=== PATIENT | male | born 1940 | race Caucasian/White ===

== ENCOUNTER → 2025-02-23 13:27 | Outpatient (REF) | payer MEDICARE, OTHER, SELFPAY | LOC: RCS 13:27 | PROVIDERS: ATTENDING PHYSICIAN Internal Medicine Cardiovascular Disease; FAMILY PHYSICIAN Family Medicine | DX: I48.19 Other persistent atrial fibrillation (principal); R06.09 Other forms of dyspnea | CPT/HCPCS: 93306 ==

== ENCOUNTER → 2025-03-02 11:25 | Outpatient (REF) | payer MEDICARE, OTHER, SELFPAY | LOC: RCS 11:25 | PROVIDERS: ATTENDING PHYSICIAN Internal Medicine Cardiovascular Disease; FAMILY PHYSICIAN Family Medicine | DX: I48.19 Other persistent atrial fibrillation (principal); R06.09 Other forms of dyspnea; R94.31 Abnormal electrocardiogram [ECG] [EKG] | CPT/HCPCS: 78452; 93017; A9500; J2785 ==

== ENCOUNTER → 2025-03-10 10:28 | Outpatient (REF) | payer MEDICARE, OTHER, SELFPAY | LOC: RCS 10:28 | PROVIDERS: ATTENDING PHYSICIAN Internal Medicine Cardiovascular Disease; FAMILY PHYSICIAN Family Medicine | DX: I50.9 Heart failure, unspecified (principal); R06.09 Other forms of dyspnea; R94.31 Abnormal electrocardiogram [ECG] [EKG]; I48.19 Other persistent atrial fibrillation | CPT/HCPCS: 78803; A9538 ==

== ENCOUNTER → 2025-03-15 12:36 | Outpatient (REF) | payer MEDICARE, OTHER, SELFPAY | LOC: RAD 12:36 | PROVIDERS: ATTENDING PHYSICIAN Internal Medicine Cardiovascular Disease; FAMILY PHYSICIAN Family Medicine | DX: R06.09 Other forms of dyspnea (principal) | CPT/HCPCS: 71046 ==

== ENCOUNTER → 2025-04-05 11:06 | Outpatient (REF) | payer MEDICARE, OTHER, SELFPAY | LOC: RAD 11:06 | PROVIDERS: ATTENDING PHYSICIAN Internal Medicine Critical Care Medicine; FAMILY PHYSICIAN Family Medicine | DX: R93.89 Abnormal findings on diagnostic imaging of other specified body structures (principal) | CPT/HCPCS: 71046 ==

== ENCOUNTER → 2025-04-11 07:10 | Outpatient (REF) | payer MEDICARE, OTHER, SELFPAY | LOC: DHSLP 07:10 | PROVIDERS: ATTENDING PHYSICIAN Internal Medicine Critical Care Medicine; FAMILY PHYSICIAN Family Medicine | DX: G47.33 Obstructive sleep apnea (adult) (pediatric) (principal) | CPT/HCPCS: 95800 ==

== ENCOUNTER → 2025-04-15 12:53 | Outpatient (REF) | payer MEDICARE, OTHER, SELFPAY | LOC: HWRAD 12:53 | PROVIDERS: ATTENDING PHYSICIAN Internal Medicine Critical Care Medicine; FAMILY PHYSICIAN Family Medicine | DX: R06.02 Shortness of breath (principal); J84.9 Interstitial pulmonary disease, unspecified | CPT/HCPCS: 71250 ==

== ENCOUNTER 2025-05-24 06:49 | Day surgery (SDC) | payer MEDICARE, OTHER, SELFPAY | END 2025-05-24 09:30 | disposition home or self-care (01) | LOC: SDS 06:49 | PROVIDERS: ATTENDING PHYSICIAN Internal Medicine Cardiovascular Disease; FAMILY PHYSICIAN Family Medicine; OTHER PHYSICIAN Internal Medicine Cardiovascular Disease; REFERRING PHYSICIAN Internal Medicine Cardiovascular Disease | DX: I48.91 Unspecified atrial fibrillation (principal); I08.0 Rheumatic disorders of both mitral and aortic valves | CPT/HCPCS: 93312; 93320; 93325 ==

== ENCOUNTER 2025-06-29 10:43 | Inpatient (IN) | payer MEDICARE, OTHER, SELFPAY ==
[2025-06-29] VITALS (26 sets, daily range): BP systolic 73–124; BP diastolic 44–85; BMI 32.8
--- NOTE | 2025-06-29 10:19 | W.PN.UPDATE ---
Update Note
Progress Note Update
84-year-old male with history of persistent atrial fibrillation, concern for left atrial thrombus April 2025, ATTR amyloidosis, HFrEF, COPD, history of DVT who presented for AIRAM cardioversion today. Patient underwent a AIRAM with no evidence of
left atrial appendage thrombus. Patient had successful AIRAM cardioversion and is now in sinus rhythm. Plan for hospitalization for initiation of antiarrhythmic therapy/Tikosyn. This was previously outlined by patient's primary septic tank servicer
Steven.
.
Note patient had been been maintained on Eliquis. He underwent a AIRAM in April which raise concern for thrombus. Patient was transition from Eliquis to Pradaxa which he has been taking consistently. Patient then underwent AIRAM cardioversion
today. Prior to AIRAM cardioversion he had just reported that he had some generalized fatigue but no changes since his last office visit and no complaints of increased shortness of breath since the last visit.
.
Postprocedure patient is currently comfortable and in no distress. Patient tolerated procedure well.
Transthoracic echo 02/23/2025 ejection fraction 35 to 40% with global hypokinesis mildly enlarged RV low normal RV systolic function aortic sclerosis without stenosis mild to moderate tricuspid regurgitation PA pressure 40-45
--- NOTE | 2025-06-29 10:48 | W.PN.CD ---
Addendum entered and electronically signed by YUE Zapata 06/29/25 11:13:
Full H+P uploaded to chart
Original Note:
Today's Communication / Plan
-
-plan to start dofetilide. Monitor telemetry and EKG's per protocol. Await labs to determine dosing of medication.
-continue dabigatran
Impression / Plan
-
84 y/o male with HFrEF, old CT by nuclear medicine study, COPD/ILD,pulm nodules, Hx DVT, ATTR amyloidosis, and persistent AFIB (diagnosis January 2025). AIRAM 05/24/25 showed GAYATRI thrombus and Eliquis was adjusted to Pradaxa. Plan per Dr. Harris is for
repeat AIRAM after 4 weeks and if no thrombus plan for CV and dofetilide initiation. AIRAM done today showed no thrombus, so patient cardioverted to SR by Dr. Navarrete. We will admit for dofetilide initiation.
Persistent AFIB:
-now s/p AIRAM and CV 06/29/25
-initiate dofetilide- awaiting blood work to see what dosing will be; this medication requires intensive monitoring
-continue Pradaxa
ATTR amyloidosis:
-Patient follows with Dr. Garcia and is on tafamidis- continue
HFrEF: chronic
-Transthoracic echo 02/23/2025 ejection fraction 35 to 40% with global hypokinesis mildly enlarged RV low normal RV systolic function aortic sclerosis without stenosis mild to moderate tricuspid regurgitation PA pressure 40-45.
-on metoprolol, spironolactone, and valsartan
-volume stable- continue Lasix
GAYATRI thrombus:
-resolved by AIRAM
-continue Pradaxa
Physical Exam
Vital Signs/Labs
06/28/25 06/29/25 06/30/25
06:59 06:59 06:59
Actual Weight 95.028 kg
Physical Exam
Constitutional: No acute distress
EENT: Anicteric
Cardiovascular: Rhythm & rate is regular
Respiratory: Respiratory effort normal and Lungs clear to auscul.
Neuro/Psych: AO x 3
Data Reviewed
-
Date of Service: June 29, 2025
EKG: Tracing Personally Visualized and interpreted (SR with PVC's, T abnormality)
Labs: Labs Ordered by me
Old Records: Reviewed (and uploaded in chart)
--- NOTE | 2025-06-29 11:02 | PTCARENOTE ---
received pt from recovery area. Aox3, no complaints of pain or discomfort. Assist x1 OOB with cane. Oriented to room and unit. Call navarro within reach.
--- NOTE | 2025-06-29 12:24 | PTCARENOTE ---
Addendum entered by Taylor Resendiz RN 06/29/25 12:38:
received orders for IVF, see MAR for details.
Original Note:
Pt BP 78/46 manually, Roxanne Montaño notified. Pt is asymptomatic at this time. Will continue to monitor.
[2025-06-29] MEDS: NSS 250 IV ×2 (13:19→16:16)
[2025-06-29 13:23] LABS: Hematocrit 36.5 % (39.0-52.0); Hemoglobin 12.1 g/dL (13.0-18.0); Mean Corp Hgb Conc. 33.2 g/dL (33.0-37.0); Mean Corpuscular Volume 96.6 fL (80.0-94.0); Platelet Count 178 10^3/uL (130-400); Red Cell Dist. Width 15.0 % (11.5-14.5)
--- NOTE | 2025-06-29 13:28 | CM ---
Chart reviewed. Patient is independent of ADLS, lives with his in a 2 S[address], 1 VICKIE, 0 DME. Plan is for the patient to return home. CM to follow
[2025-06-29 13:55] LABS: Blood Urea Nitrogen 28 mg/dl (9-20); Calcium 8.9 mg/dl (8.4-10.2); Carbon Dioxide 31 mmol/L (22-30); Chloride 103 mmol/L (98-107); Estimated Creatinine Clearance 48 ml/min; Glucose 102 mg/dl (70-99); Potassium 5.4 mmol/L (3.5-5.1); Sodium 137 mmol/L (135-145); eGFR 54.85
--- NOTE | 2025-06-29 14:37 | W.CARD.TIKOS ---
Initiate Tikosyn
-
I verify that the patient has not taken any verapamil (Isoptin/Calan), ketoconazole (Nizoral), cimetidine (Tagamet), trimethoprim (Trimpex), trimethoprim/sulfamethoxazole (Bactrim), megesterol (Megace), prochlorperazine (Compazine),
hydrochlorothiazide (HCTZ), dolutegravir (Tivicay) or any Class I or Class III anti-arrhythmic within the last three days
AND
I verify that the patient has not taken amiodarone within the last THREE months, or that the patient's amiodarone plasma concentration is <0.3 mcg/mL.
Creatinine 1.3 mg/dL (0.7-1.3) 06/29/25 13:11
Estimated Creat Clear 48 ml/min 06/29/25 13:11
Does patient have a Ventricular Conduction Abnormality: No
I have assessed the baseline QTc interval (using QT for heart rate less than 60 bpm) and deemed the patient is appropriate for Dofetilide therapy. I understand that Tikosyn is contraindicated if the QTc is >440msec (500msec in patients with
ventricular conduction abnormalities).
Baseline QTc (in msec): 438
Ordering Physician: Warren Navarrete
--- NOTE | 2025-06-29 16:56 | W.PN.UPDATE ---
Addendum entered and electronically signed by YUE Zapata 06/29/25 17:35:
Dr. Cornell and I reassessed patient who seems to be doing fine. MAP is 66. He feels weak overall, but otherwise fine. Eating dinner. Plan as below.
Addendum entered and electronically signed by YUE aZpata 06/29/25 17:32:
Also holding metoprolol until reassessment in AM. Resume when safe to do so.
Original Note:
Update Note
Progress Note Update
Late entry:
Post-procedure, nursing let me know that patient's BP was low 74/48. I assessed him and he felt and looked well. Last OP BP was SBP in 90's. Discussed with Dr. Navarrete (who did procedure today) and I ordered small normal saline bolus x 2. Reviewed
with nursing. Also asked nursing to hold today's Lasix.
Otherwise, patient with mild hyperkalemia on today's labs and I will hold Valsartan and Spironolactone until we see AM labs and BP's. Plan to resume when safe to do so.
SBP still in 80's. Discussed with Dr. Navarrete and nursing and will give a dose of midodrine.
--- NOTE | 2025-06-29 17:06 | PTCARENOTE ---
BP 83/58 after receiving 2nd IVF bolus. Roxanne Montaño made aware. Per Roxanne, keep pt on bedrest as much as possible. Will continue to monitor.
[2025-06-29] MEDS: TIKOSYN 250 MCG PO (19:29)
[2025-06-29] MEDS: LYRICA 150 MG PO (19:29)
[2025-06-29] MEDS: PRADAXA 150 MG PO (19:30)
--- NOTE | 2025-06-29 23:34 | PTCARENOTE ---
Received pt @ change of shift. AAOx3, BPs 80s/50s-- Dr. Cornell aware. Holding BP meds and lasix. Other VSS. Denies dizziness, lightheadedness @ this time. Just feels 'tired and weak.' Did not bring CPAP from home-- requested 2L NC @ HS. Discussed
starting Tikosyn loading-- medication with EKGs two hours later. Pt verbalizes understanding. Discussed rest of plan of care. Pt verbalizes understanding. Call navarro within reach.
[2025-06-30] VITALS (11 sets, daily range): BP systolic 80–142; BP diastolic 43–126; BMI 33.4
[2025-06-30 03:06] LABS: Hematocrit 33.0 % (39.0-52.0); Hemoglobin 11.0 g/dL (13.0-18.0); Mean Corp Hgb Conc. 33.3 g/dL (33.0-37.0); Mean Corpuscular Volume 92.2 fL (80.0-94.0); Platelet Count 163 10^3/uL (130-400); Red Cell Dist. Width 15.0 % (11.5-14.5)
--- NOTE | 2025-06-30 03:10 | PTCARENOTE ---
Informed Dr. Youssef of pt's low BP and HR (81/50 and 50s). Because pt is asymptomatic-- nothing to do @ this time.
[2025-06-30 03:30] LABS: Blood Urea Nitrogen 36 mg/dl (9-20); Calcium 8.6 mg/dl (8.4-10.2); Carbon Dioxide 26 mmol/L (22-30); Chloride 104 mmol/L (98-107); Estimated Creatinine Clearance 39 ml/min; Glucose 92 mg/dl (70-99); Potassium 5.0 mmol/L (3.5-5.1); Sodium 136 mmol/L (135-145); eGFR 42.75
[2025-06-30] MEDS: PRADAXA 150 MG PO ×2 (07:19→19:32)
[2025-06-30] MEDS: LYRICA 150 MG PO ×2 (07:19→19:32)
[2025-06-30] MEDS: NON-FORMULARY ITEM 61 MG PO (07:20)
--- NOTE | 2025-06-30 07:40 | PTCARENOTE ---
Assumed care of pt from night RN. AAOx3. PRINCESS. SB on tele, HR 50s. BP 99/54. Midodrine started for low BPs. Tikosyn placed on hold at this time. Pt instructed to use call navarro for assistance ambulating due to lower BPs, verbalized understanding.
Assessment documented. Pt sitting on side of bed, call navarro in reach.
[2025-06-30] MEDS: NON-FORMULARY ITEM 1 INH INH (07:47)
--- NOTE | 2025-06-30 08:18 | W.PN.CD ---
Addendum entered and electronically signed by Hemanth Youssef MD 06/30/25 17:03:
CDI query response:
- The patient has Acute kidney injury (non-traumatic).
Original Note:
Today's Communication / Plan
-
-Initiated on dofetilide; QTc is stable, but patient now has abnormal renal function (creatinine 1.6) and had a 3-beat then 8-beat run of NSVT on telemetry early this a.m. (asymptomatic).
-Will stop dofetilide at this time; will have EP Cardiology patient reevaluate tomorrow.
-Will obtain a transthoracic echocardiogram to thoroughly reassess LVEF.
-Blood pressure has been low; will hold Lasix; started on midodrine yesterday.
Impression / Plan
-
84 y/o male with HFrEF (EF 35-40%), old [place] by nuclear medicine study, COPD/ILD,pulm nodules, Hx DVT, ATTR cardiac amyloidosis, and persistent AFIB (diagnosis January 2025). AIRAM 05/24/25 showed GAYATRI thrombus and Eliquis was adjusted to Pradaxa. Plan per
Dr. Harris is for repeat AIRAM after 4 weeks and if no thrombus plan for CV and dofetilide initiation. Successful AIRAM/CVN on 06/28/25. Patient admitted for dofetilide initiation.
Persistent AFIB:
-now s/p AIRAM and CV 06/29/25
-Initiated on dofetilide; QTc is stable, but patient now has abnormal renal function (creatinine 1.6) and had a 3-beat then 8-beat run of NSVT on telemetry early this a.m. (asymptomatic).
-continue Pradaxa
-Will stop dofetilide at this time; will have EP Cardiology patient reevaluate tomorrow.
-Will obtain a transthoracic echocardiogram to thoroughly reassess LVEF.
-Blood pressure has been low; will hold Lasix; started on midodrine yesterday.
ATTR amyloidosis:
-Patient follows with Dr. Garcia and is on tafamidis- continue
HFrEF: chronic
-Transthoracic echo 02/23/2025 ejection fraction 35 to 40% with global hypokinesis mildly enlarged RV low normal RV systolic function aortic sclerosis without stenosis mild to moderate tricuspid regurgitation PA pressure 40-45.
-Holding Lasix, metoprolol, spironolactone, and Valsartan, given low blood pressure.
-Compensated on examination.
GAYATRI thrombus:
-resolved by AIRAM
-continue Pradaxa
Physical Exam
Vital Signs/Labs
Vital Signs
Temp Pulse Resp BP Pulse Ox
98.1 F 55 20 99/54 98
06/30/25 06:44 06/30/25 07:30 06/30/25 06:44 06/30/25 07:20 06/30/25 06:44
06/29/25 06/30/25 07/01/25
06:59 06:59 06:59
Actual Weight 96.6 kg
06/30/25 02:54
06/30/25 02:54
Physical Exam
Constitutional: No acute distress and Comfortable
EENT: Anicteric
Cardiovascular: Rhythm & rate is regular, Pedal edema is absent, Systolic murmur absent and S1S2 is normal
Respiratory: Respiratory effort normal and Lungs clear to auscul.
GI: Soft
Neuro/Psych: AO x 3
Other: Skin (Warm, dry, intact)
Data Reviewed
-
Date of Service: June 30, 2025
EKG: Tracing Personally Visualized and interpreted (Telemetry: Sinus rhythm, infrequent PACs/PVCs, 3-beat NSVT, 8-beat NSVT.)
Echo: Report Reviewed by me (AIRAM 06/29/2025: No GAYATRI thrombus; EF 50-55%.)
Medical Tests (PFT, Pathology etc): Discussed with Patient
Labs: Labs Reviewed by me
[2025-06-30 09:36] LABS: Urine Character Clear (Clear)
[2025-06-30 12:10] LABS: Urine Squamous Cell >30 /LPF (Few)
[2025-06-30 12:11] LABS: Urine Red Blood Cell 0-2 /HPF (0-2)
--- NOTE | 2025-06-30 15:48 | PN.CDI ---
CDI
- -
CDI:
Physician Documentation Request
Admit Date: 06/29/25 10:43
Dear Cardiology,
Please review the following and provide your response in the progress notes.
Clinical Indicators:
Pt admitted for Cardioversion and Tikosyn therapy.
06/29 Update note: ' Post-procedure, nursing let me know that patient's BP was low 74/48. I assessed him and he felt and looked well. Last OP BP was SBP in 90's. Discussed with Dr. Navarrete (who did procedure today) and I ordered small normal saline
bolus x 2. Reviewed with nursing. Also asked nursing to hold today's Lasix.'
06/30 Cardiology Note: ' .. patient now has abnormal renal function (creatinine 1.6)...-Blood pressure has been low; will hold Lasix; started on midodrine yesterday.'
Selected Entries
06/29/25
12:00 06/29/25
13:00 06/29/25
18:32
Blood pressure 76/48 84/53 81/53
Laboratory Tests
06/29/25 06/30/25
13:11 02:54
Creatinine 1.3 1.6 H
Clarify which of the following accurately represents the patient's renal status:
Acute kidney injury (non-traumatic) - see criteria
Insignificant elevation in creatitine level
Other
Criteria for PONCHO*
1 Increase in serum creatinine by > or = to 0.3 mg/dL (> or = to 26.5 micromol/L) within 48 hours, OR
2 Increase in serum creatinine to > or = to 1.5 times baseline, which is known or presumed to have occurred within 7 days, OR
3 Urine volume < 0.5 nL/kg/hour for six hours
Use of terms such as suspected, likely, concern for, or probable (associated with a specific diagnosis that is being evaluated, monitored, or treated as if it exists) are acceptable and can be coded in the inpatient setting, when documented at the
time of discharge.
Thank you,
Rand Holland RN, BSN
CDI Specialist
[employer] [employer]
Please use your independent medical judgment in providing your response.
*Source: Kidney Disease: Improving Global Outcomes (KDIGO) 2012
--- NOTE | 2025-06-30 23:00 | PTCARENOTE ---
Received pt @ change of shift. AAOx3, BP 80s-90s/50s-- asymptomatic and Drs. santiago. SB w/ BBB, PVCs and PACs on monitor. 9 bt run of VT after going to the bathroom-- pt was asymptomatic. Pt states 'less burning with peeing than earlier.' RN bladder
scanned for post void residual to see if pt was emptying bladder completely-- scanned for 10 mL. Pt requested 2L NC in place of CPAP again, tonight. Discussed plan of care and calling RN with any dizziness, lightheadedness. Pt verbalizes
understanding. Call navarro within reach.
[2025-07-01] VITALS (8 sets, daily range): BP systolic 94–126; BP diastolic 50–80; BMI 33.2
[2025-07-01 04:39] LABS: Hematocrit 34.5 % (39.0-52.0); Hemoglobin 10.9 g/dL (13.0-18.0); Mean Corp Hgb Conc. 31.6 g/dL (33.0-37.0); Mean Corpuscular Volume 96.9 fL (80.0-94.0); Platelet Count 151 10^3/uL (130-400); Red Cell Dist. Width 14.9 % (11.5-14.5)
[2025-07-01 04:59] LABS: Blood Urea Nitrogen 37 mg/dl (9-20); Calcium 8.8 mg/dl (8.4-10.2); Carbon Dioxide 29 mmol/L (22-30); Chloride 105 mmol/L (98-107); Estimated Creatinine Clearance 49 ml/min; Glucose 91 mg/dl (70-99); Potassium 5.4 mmol/L (3.5-5.1); Sodium 138 mmol/L (135-145); eGFR 54.85
[2025-07-01] MEDS: LYRICA 150 MG PO ×2 (07:27→20:51)
[2025-07-01] MEDS: PRADAXA 150 MG PO ×2 (07:27→20:51)
[2025-07-01] MEDS: NON-FORMULARY ITEM 61 MG PO (07:28)
[2025-07-01] MEDS: NON-FORMULARY ITEM 1 INH INH (07:53)
--- NOTE | 2025-07-01 09:21 | W.PN.CD ---
Today's Communication / Plan
-
Resume Dofetilide
Follow QTc
Add back Aldactone
Add new SGLT2-I
Hold other meds
58 min spent caring for pt today
Impression / Plan
-
84 y/o male with HFrEF (EF 35-40% => improving to 50-55%), old [place] by nuclear medicine study, COPD/ILD,pulm nodules, Hx DVT, ATTR cardiac amyloidosis, and persistent AFIB (diagnosis January 2025). AIRAM 05/24/25 showed GAYATRI thrombus and Eliquis was adjusted
to Pradaxa. Plan per Dr. Harris is for repeat AIRAM after 4 weeks and if no thrombus plan for CV and dofetilide initiation. Successful AIRAM/CVN on 06/28/25. Patient admitted for dofetilide initiation.
Persistent AFIB:
- now s/p AIRAM and CV 06/29/25
- Resume dofetilide 250 mcg BID
- Will not stop dofetilide for short NSVT, but if we see torsades we will stop dofetilide
- Continue Pradaxa
Prior GAYATRI thrombus + ATTR amyloidosis
- Thrombus resolved with Pradaxa
- If another cardioversion needed he will need a AIRAM first
Hypotension
- Now on midodrine
- Continue to hold Lasix 40 mg a/w 20 mg daily
- Continue to hold valsartan 80 mg daily
- Continue to hold metoprolol ER 50 mg daily
CKD, typically 3A
- PONCHO resolved, Cr at baseline 1.3, eGFR 49
ATTR amyloidosis:
-Patient follows with Dr. Garcia and is on tafamidis- continue
-Continue Tafamidis
HFrEF: chronic, LVEF 35-40% on 02/23/2025 but improving on echo 04/2025 and 06/2025
- Med Rx limited by BP
- Will add SGLT2-I and check cost
- Resume spironolactone
- Continue to hold Lasix 40 mg a/w 20 mg daily
- Continue to hold valsartan 80 mg daily
- Continue to hold metoprolol ER 50 mg daily
Suspected CAD:
- Fixed defect on nuclear study without ischemia
- Dense coronary calcification on CT scan
- Planning to treat medically unless angina develops
Lung disease ILD/COPD/sleep apnea
- Follows with pulmonary
Subjective:
- Feel OK
Data:
- Echo 07/01/2025: LVEF 50-55%, no significant valve disease, no significant change from AIRAM 06/29/25.
- AIRAM 04/2025: Mildly reduced LVEF, +GAYATRI thrombus, valves OK
- Echo 02/23/2025: LVEF 35-40%, global hypo, mildly enlarged RV, low normal RV fxn, AoV sclerosis, mild-mod TR, PASP 40-45%
- Kelley 03/02/2025: Mediumsized, severe, fixed basal to apical inferior wall. Consistent with infarction . LVEF 38%, LV dilated
Physical Exam
Vital Signs/Labs
Vital Signs
Temp Pulse Resp BP Pulse Ox
97.4 F 83 20 94/50 94
07/01/25 06:54 07/01/25 07:54 07/01/25 06:54 07/01/25 03:58 07/01/25 06:54
06/30/25 07/01/25 07/02/25
06:59 06:59 06:59
Actual Weight 96.6 kg 96.1 kg
07/01/25 04:04
07/01/25 04:04
Physical Exam
Constitutional: No acute distress
EENT: Anicteric
Cardiovascular: Rhythm & rate is regular and Pedal edema is absent
Respiratory: Respiratory effort normal and Lungs clear to auscul.
GI: Soft and Distention absent
Neuro/Psych: Alert
Data Reviewed
-
Date of Service: July 01, 2025
--- NOTE | 2025-07-01 09:32 | PTCARENOTE ---
Pt alert/pleasant and offers no complaints. Ambulating around unit w/ RW. Seen by cards and orders to restart Tikosyn at 1000 today placed.
[2025-07-01] MEDS: TIKOSYN 250 MCG PO ×2 (10:24→20:51)
--- NOTE | 2025-07-01 10:47 | CM ---
Chart reviewed. Patient OOB ambulating the halls. Patient is independent of ADLS, lives with his in a 2 S[address], 1 VICKIE, 0 DME. Patient is interested in VN. Referral sent to [facility]. Plan is for the patient to return [facility] with [facility]. CM to follow
--- NOTE | 2025-07-01 11:00 | PTCARENOTE ---
Assumed care of pt from prev nsg shift; Pt AAOx3 w/no c/o Cp or SOB. Pt's VSS w/HR in the 60's & BP 114/57 this AM. Pt is SR w/freq PVC's on telemetry monitoring. Pt ambulating independently around his rm & the unit. Plan of care discussed w/pt &
his spouse. Pt w/no addtl needs at this time. Call navarro within reach.
--- NOTE | 2025-07-01 11:29 | CM ---
Pricing on Dofetilide through the patients pharmacy is a $0 copay. Currently the patient was started on 250mcq and it is not in stock. They will be able to get the medication in 24 hours. The patient will need a 3 day supply to go home.
--- NOTE | 2025-07-01 23:06 | PTCARENOTE ---
Received patient at change of shift. SR with a BBB on the monitor, HR in the 60s. Ambulating in the cruz with walker. Tikosyn administered, EKG obtained 2 hours later as per protocol. No complaints from pt at this time, call navarro within reach.
[2025-07-02 02:11] VITALS: BP 125/65
[2025-07-02 03:00] LABS: Blood Urea Nitrogen 25 mg/dl (9-20); Calcium 9.0 mg/dl (8.4-10.2); Carbon Dioxide 27 mmol/L (22-30); Chloride 106 mmol/L (98-107); Estimated Creatinine Clearance 63 ml/min; Glucose 95 mg/dl (70-99); Potassium 4.5 mmol/L (3.5-5.1); Sodium 139 mmol/L (135-145); eGFR > 60.00
[2025-07-02 05:02] LABS: Magnesium 2.3 mg/dl (1.6-2.3)
--- NOTE | 2025-07-02 05:17 | PTCARENOTE ---
Patient with a [address] in the 140s. Asymptomatic. CT surgery PA made aware. Magnesium add on ordered.
[2025-07-02 07:06] VITALS: BP 117/60
[2025-07-02 07:13] VITALS: BMI 33.0
[2025-07-02] MEDS: NON-FORMULARY ITEM 1 INH INH (08:14)
[2025-07-02] MEDS: LYRICA 150 MG PO ×2 (08:22→19:26)
[2025-07-02] MEDS: ALDACTONE 25 MG PO (08:22)
[2025-07-02] MEDS: FARXIGA 10 MG PO (08:23)
[2025-07-02] MEDS: PRADAXA 150 MG PO ×2 (08:23→19:26)
[2025-07-02] MEDS: NON-FORMULARY ITEM 61 MG PO (08:25)
[2025-07-02] MEDS: TIKOSYN 250 MCG PO ×2 (09:26→20:32)
--- NOTE | 2025-07-02 10:58 | W.PN.CD ---
Today's Communication / Plan
-
- Continue to load Tikosyn
Impression / Plan
-
84 y/o male with HFrEF (EF 35-40% => improving to 50-55%), old [place] by nuclear medicine study, COPD/ILD,pulm nodules, Hx DVT, ATTR cardiac amyloidosis, and persistent AFIB (diagnosis January 2025). AIRAM 05/24/25 showed GAYATRI thrombus and Eliquis was adjusted
to Pradaxa. Plan per Dr. Harris is for repeat AIRAM after 4 weeks and if no thrombus plan for CV and dofetilide initiation. Successful AIRAM/CVN on 06/28/25. Patient admitted for dofetilide initiation.
Persistent AFIB:
- now s/p AIRAM and CV 06/29/25
- On dofetilide loading - 250 mcg BID - started on 07/01/25
- Will not stop dofetilide for short NSVT, but if we see torsades we will stop dofetilide
- Continue Pradaxa
Prior GAYATRI thrombus + ATTR amyloidosis
- Thrombus resolved with Pradaxa
- If another cardioversion needed he will need a AIRAM first
Hypotension
- Now on midodrine
- Continue to hold Lasix 40 mg a/w 20 mg daily
- Continue to hold valsartan 80 mg daily
- Continue to hold metoprolol ER 50 mg daily
CKD, typically 3A
- PONCHO resolved, Cr at baseline 1.3, eGFR 49
ATTR amyloidosis:
-Patient follows with Dr. Garcia and is on tafamidis- continue
-Continue Tafamidis
HFrEF: chronic, LVEF 35-40% on 02/23/2025 but improving on echo 04/2025 and 06/2025
- Med Rx limited by BP
- Continue spironolactone and Farxiga.
- Continue to hold Lasix 40 mg a/w 20 mg daily
- Continue to hold valsartan 80 mg daily
- Continue to hold metoprolol ER 50 mg daily
Suspected CAD:
- Fixed defect on nuclear study without ischemia
- Dense coronary calcification on CT scan
- Planning to treat medically unless angina develops
Lung disease ILD/COPD/sleep apnea
- Follows with pulmonary
Subjective:
- Feel OK. Ambulating the hallways.
Data:
- Echo 07/01/2025: LVEF 50-55%, no significant valve disease, no significant change from AIRAM 06/29/25.
- AIRAM 04/2025: Mildly reduced LVEF, +GAYATRI thrombus, valves OK
- Echo 02/23/2025: LVEF 35-40%, global hypo, mildly enlarged RV, low normal RV fxn, AoV sclerosis, mild-mod TR, PASP 40-45%
- Kelley 03/02/2025: Mediumsized, severe, fixed basal to apical inferior wall. Consistent with infarction . LVEF 38%, LV dilated
Physical Exam
Vital Signs/Labs
Vital Signs
Temp Pulse Resp BP Pulse Ox
97.6 F 64 16 125/65 92
07/02/25 07:13 07/02/25 08:16 07/02/25 08:16 07/02/25 02:11 07/02/25 08:16
07/01/25 07/02/25 07/03/25
06:59 06:59 06:59
Actual Weight 96.1 kg 95.5 kg
07/01/25 04:04
07/02/25 02:23
Magnesium Cancelled 07/02/25 04:27
Physical Exam
Constitutional: No acute distress and Comfortable
EENT: Anicteric and Moist mucous membranes
Cardiovascular: Pedal edema is absent, JVD pressure is normal, Rhythm/rate is irregular and Systolic murmur present
Respiratory: Respiratory effort normal, Lungs clear to auscul. and Crackles Absent
GI: Soft and Non tender
Neuro/Psych: Alert, Oriented and AO x 3
Data Reviewed
-
Date of Service: July 02, 2025
Medical Decision Making: Reviewed Test Results, Test Interpretation and Review of Case with other Provider
EKG: Tracing Personally Visualized and interpreted
Labs: Labs Reviewed by me
Old Records: Reviewed
[2025-07-02 11:44] VITALS: BP 108/60
--- NOTE | 2025-07-02 11:59 | PTCARENOTE ---
Assessment stable as documented. Pt without complaints. Freq ambulation with walker. MD Hao aware of QTc.
[2025-07-02 15:54] VITALS: BP 120/64
--- NOTE | 2025-07-02 16:55 | PTCARENOTE ---
Pt received at 1500 with no c/o of any pain, palpitations or sob. OOB ad bhaskar, ambulating in the hallway with the walker. No change in status from am assessment.
[2025-07-02 19:16] VITALS: BP 114/61
--- NOTE | 2025-07-02 20:54 | PTCARENOTE ---
Patient received at change of shift out of bed ambulating independently in the hallway with a RW. The patient offers no complaints at this time, just wants to go home. Sinus rhythm on telemetry. Oxygen saturation 93-95% on room air. Plan of care
discussed including Tikosyn loading. Call navarro within reach. Care ongoing.
[2025-07-02 22:25] VITALS: BP 116/75
[2025-07-03 02:47] VITALS: BP 131/70
[2025-07-03 02:54] VITALS: BMI 33.0
[2025-07-03 04:08] LABS: Blood Urea Nitrogen 20 mg/dl (9-20); Calcium 9.4 mg/dl (8.4-10.2); Carbon Dioxide 29 mmol/L (22-30); Chloride 104 mmol/L (98-107); Estimated Creatinine Clearance 63 ml/min; Glucose 96 mg/dl (70-99); Potassium 4.8 mmol/L (3.5-5.1); Sodium 138 mmol/L (135-145); eGFR > 60.00
[2025-07-03 07:05] VITALS: BP 117/67
[2025-07-03] MEDS: LYRICA 150 MG PO ×2 (08:03→20:18)
[2025-07-03] MEDS: ALDACTONE 25 MG PO (08:04)
[2025-07-03] MEDS: FARXIGA 10 MG PO (08:04)
[2025-07-03] MEDS: PRADAXA 150 MG PO ×2 (08:04→20:17)
[2025-07-03] MEDS: TIKOSYN 250 MCG PO ×2 (08:04→20:19)
[2025-07-03] MEDS: NON-FORMULARY ITEM 61 MG PO (08:05)
[2025-07-03] MEDS: NON-FORMULARY ITEM 1 INH INH (08:08)
[2025-07-03 11:32] VITALS: BP 131/69
--- NOTE | 2025-07-03 12:00 | W.PN.CD ---
Today's Communication / Plan
-
- Continue loading Tikosyn onto 50 mcg every 12 hours dosing.
Impression / Plan
-
84 y/o male with HFrEF (EF 35-40% => improving to 50-55%), old [place] by nuclear medicine study, COPD/ILD,pulm nodules, Hx DVT, ATTR cardiac amyloidosis, and persistent AFIB (diagnosis January 2025). AIRAM 05/24/25 showed GAYATRI thrombus and Eliquis was adjusted
to Pradaxa. Plan per Dr. Harris is for repeat AIRAM after 4 weeks and if no thrombus plan for CV and dofetilide initiation. Successful AIRAM/CVN on 06/28/25. Patient admitted for dofetilide initiation.
Persistent AFIB:
- now s/p AIRAM and CV 06/29/25
- On dofetilide loading - 250 mcg BID - started on 07/01/25 -QTc is acceptable.
- Continue loading
- Will not stop dofetilide for short NSVT, but if we see torsades we will stop dofetilide
- Continue Pradaxa
Prior GAYATRI thrombus + ATTR amyloidosis
- Thrombus resolved with Pradaxa
- If another cardioversion needed he will need a AIRAM first
Hypotension
- Now on midodrine
- Continue to hold Lasix 40 mg a/w 20 mg daily
- Continue to hold valsartan 80 mg daily
- Continue to hold metoprolol ER 50 mg daily
CKD, typically 3A
- PONCHO resolved, Cr at baseline 1.3, eGFR 49
ATTR amyloidosis:
-Patient follows with Dr. Garcia and is on tafamidis- continue
-Continue Tafamidis
HFrEF: chronic, LVEF 35-40% on 02/23/2025 but improving on echo 04/2025 and 06/2025
- Med Rx limited by BP
- Continue spironolactone and Farxiga.
- Continue to hold Lasix 40 mg a/w 20 mg daily
- Continue to hold valsartan 80 mg daily
- Continue to hold metoprolol ER 50 mg daily
Suspected CAD:
- Fixed defect on nuclear study without ischemia
- Dense coronary calcification on CT scan
- Planning to treat medically unless angina develops
Lung disease ILD/COPD/sleep apnea
- Follows with pulmonary
Subjective:
- Feel OK. Ambulating the hallways.
Data:
- Echo 07/01/2025: LVEF 50-55%, no significant valve disease, no significant change from AIRAM 06/29/25.
- AIRAM 04/2025: Mildly reduced LVEF, +GAYATRI thrombus, valves OK
- Echo 02/23/2025: LVEF 35-40%, global hypo, mildly enlarged RV, low normal RV fxn, AoV sclerosis, mild-mod TR, PASP 40-45%
- Kelley 03/02/2025: Mediumsized, severe, fixed basal to apical inferior wall. Consistent with infarction . LVEF 38%, LV dilated
Physical Exam
Vital Signs/Labs
Vital Signs
Temp Pulse Resp BP Pulse Ox
97.8 F 71 20 117/67 95
07/03/25 11:32 07/03/25 08:04 07/03/25 11:32 07/03/25 08:04 07/03/25 11:32
07/02/25 07/03/25 07/04/25
06:59 06:59 06:59
Actual Weight 95.6 kg
07/01/25 04:04
07/03/25 02:59
Magnesium Cancelled 07/02/25 04:27
Physical Exam
Constitutional: No acute distress and Comfortable
EENT: Anicteric and Moist mucous membranes
Cardiovascular: Rhythm & rate is regular, Pedal edema is absent and JVD pressure is normal
Respiratory: Respiratory effort normal, Lungs clear to auscul. and Wheeze Absent
GI: Soft, Non tender and Normal bowel sounds
Data Reviewed
-
Date of Service: July 03, 2025
Medical Decision Making: Reviewed Test Results, Test Interpretation and Review of Case with other Provider
EKG: Tracing Personally Visualized and interpreted
Echo: Report Reviewed by me
Labs: Labs Reviewed by me
Old Records: Reviewed
[2025-07-03 14:43] VITALS: BP 107/68
--- NOTE | 2025-07-03 18:58 | PTCARENOTE ---
~8067-6657: Handoff report received from nightshift RN. Pt AOx4, NSR 70s on tele frequent asymptomatic 4-7 beat runs of NSVT, SBP 110s, RA satting 93% lung sounds diminished. Pt denies pain at this time. Independent in room and OOB in chair. Tikosyn
dose #5 given per order and EKG ordered per protocol. All needs met, call navarro within reach.
~[id number]: Patient SBP 130s for afternoon VS, TT sent to Dr. Bui about scheduled midodrine, awaiting response.
~[id number]: Per Dr. Bui, hold midodrone for SBP >110, verbal order taken. Patient OOB in chair with family member visiting. All needs met at this time, call navarro within reach.
~[id number]: Patient ambulated in halls independently. Denies pain at this time. All needs met, call navarro within reach. Handoff report given to nightshift RN.
[2025-07-03 19:08] VITALS: BP 119/70
--- NOTE | 2025-07-03 21:43 | PTCARENOTE ---
Received pt at change of shift OOB in chair. pt ambulating halls w/ rw. SR on tele, HR 70's. pt denies any CP or SOB at this time. Educated pt on fluid restriction, pt verbalizes understanding. Encouraged pt to call RN with any questions/concerns.
Call navarro within reach.
[2025-07-03 22:20] VITALS: BP 116/66
[2025-07-04 04:44] VITALS: BP 113/62
[2025-07-04 05:13] VITALS: BMI 32.9
[2025-07-04 06:01] LABS: Blood Urea Nitrogen 18 mg/dl (9-20); Calcium 8.9 mg/dl (8.4-10.2); Carbon Dioxide 28 mmol/L (22-30); Chloride 106 mmol/L (98-107); Estimated Creatinine Clearance 63 ml/min; Glucose 88 mg/dl (70-99); Potassium 4.2 mmol/L (3.5-5.1); Sodium 140 mmol/L (135-145); eGFR > 60.00
[2025-07-04] MEDS: NON-FORMULARY ITEM 1 INH INH (07:48)
[2025-07-04 07:49] VITALS: BP 133/69
[2025-07-04] MEDS: TIKOSYN 250 MCG PO (09:03)
[2025-07-04] MEDS: NON-FORMULARY ITEM 61 MG PO (09:04)
[2025-07-04] MEDS: FARXIGA 10 MG PO (09:04)
[2025-07-04] MEDS: ALDACTONE 25 MG PO (09:04)
[2025-07-04] MEDS: PRADAXA 150 MG PO (09:04)
[2025-07-04] MEDS: LYRICA 150 MG PO (09:04)
--- NOTE | 2025-07-04 09:11 | W.PN.CD ---
Addendum entered and electronically signed by Thong Harris MD 07/04/25 10:59:
I saw and evaluated the patient, and I provided the substantive portion of the medical decision making.
I reviewed and agree with the note by YUE Zapata and it accurately reflects our care.
I personally performed the medical decision making of the this encounter and my assessment and plan is below:
Tele with a few short runs of NSVT, no torsades.
Feels much better.
Some HF meds resumed.
QTc ok but for added safety I feel better at 125 mcg BID for discharge of Dofetilide.
Home today.
Addendum entered and electronically signed by YUE Zapata 07/04/25 10:42:
Farxiga is new med- should have BMP in 1-2 weeks. Will send electronically.
Original Note:
Today's Communication / Plan
-
-continue dofetilide and dabigatran. Discussed with Dr. Harris, will lower dofetilide dose. Resume metoprolol, but at 25 mg PO daily.
-stop midodrine. Lasix to be PRN.
-remain off valsartan for now, but continue spironolactone and farxiga.
Impression / Plan
-
84 y/o male with HFrEF (EF 35-40% => improving to 50-55%), old [place] by nuclear medicine study, COPD/ILD,pulm nodules, Hx DVT, ATTR cardiac amyloidosis, and persistent AFIB (diagnosis January 2025). AIRAM 05/24/25 showed GAYATRI thrombus and Eliquis was adjusted
to Pradaxa. Successful AIRAM/CVN on 06/28/25. Patient admitted for dofetilide initiation.
Persistent AFIB:
- now s/p AIRAM and CV 06/29/25; remains in SR
- On dofetilide loading - 250 mcg Q 12 H - started on 07/01/25 -QTc is acceptable, but close to 500 ms. We will reduce dofetilide dose- discussed with EP.
- Will not stop dofetilide for short NSVT, but if we see torsades we will stop dofetilide. No torsades seen. Adding back metoprolol.
- Continue Pradaxa
Prior GAYATRI thrombus + ATTR amyloidosis
- Thrombus resolved with Pradaxa
- If another cardioversion needed he will need a AIRAM first
Hypotension: resolved
- midodrine has been held last few doses and I will now stop
- Lasix has been held and we will make PRN for fluid retention
- Continue to hold valsartan
- resume metoprolol, but reduce dose
PONCHO on CKD:
-PONCHO now resolved
ATTR amyloidosis:
-Patient follows with Dr. Garcia and is on tafamidis- continue
-Continue Tafamidis
HFrEF: chronic, LVEF 35-40% on 02/23/2025 but improving on echo 04/2025 and 06/2025 (EF 50-55% echo 06/30/25)
- Med assessment and plan as above
Suspected CAD:
- Fixed defect on nuclear study without ischemia
- Dense coronary calcification on CT scan
- Planning to treat medically unless angina develops
Lung disease ILD/COPD/sleep apnea
- Follows with pulmonary
Subjective:
-feels fine. Ambulating without issue. No SOB or palps. Anxious to go home.
Data:
- Echo 07/01/2025: LVEF 50-55%, no significant valve disease, no significant change from AIRAM 06/29/25.
- AIRAM 04/2025: Mildly reduced LVEF, +GAYATRI thrombus, valves OK
- Echo 02/23/2025: LVEF 35-40%, global hypo, mildly enlarged RV, low normal RV fxn, AoV sclerosis, mild-mod TR, PASP 40-45%
- Kelley 03/02/2025: Mediumsized, severe, fixed basal to apical inferior wall. Consistent with infarction . LVEF 38%, LV dilated
Physical Exam
Vital Signs/Labs
Vital Signs
Temp Pulse Resp BP Pulse Ox
97.5 F 79 18 133/69 96
07/04/25 07:56 07/04/25 08:00 07/04/25 07:56 07/04/25 07:49 07/04/25 07:56
07/03/25 07/04/25 07/05/25
06:59 06:59 06:59
Actual Weight 95.6 kg 95.3 kg
07/01/25 04:04
07/04/25 04:56
Magnesium Cancelled 07/02/25 04:27
Physical Exam
Constitutional: No acute distress
EENT: Anicteric
Cardiovascular: Rhythm & rate is regular
Respiratory: Respiratory effort normal and Lungs clear to auscul.
Neuro/Psych: AO x 3
Data Reviewed
-
Date of Service: July 04, 2025
EKG: Tracing Personally Visualized and interpreted (NSR)
Medical Tests (PFT, Pathology etc): Report Reviewed by me (echo)
Labs: Labs Reviewed by me
--- NOTE | 2025-07-04 10:21 | PTCARENOTE ---
Assumed care of pt from prev nsg shift; Pt AAOx3 w/no c/o CP or SOB. Pt's VSS w/HR in the 70's & BP 133/69 this AM. Pt is SR w/occas PVC's on telemetry monitoring. Pt's AM PO midodrine held per order parameters. Pt ambulating independently around
his rm & the unit. Plan of care discussed w/pt & his spouse. Pt w/no addtl needs at this time. Call navarro within reach.
--- NOTE | 2025-07-04 10:59 | W.DS.TRANS ---
DC Summary - Photograph Developer
-
Discharge Instructions:
Discharge Diagnosis/Procedures Persistent atrial fibrillation
Procedure: AIRAM and cardioversion
Medication: Dofetilide initiation
HFimpEF
ATTR amyloidosis
acute kidney injury: resolved
Diet 2 Gram Sodium,Restrict fluids to 64 oz
Activity As tolerated
Driving Restrictions As prior to admission
Bathing Restrictions None
Blood Work BMP in 1-2 weeks- slip sent electronically to
[facility].
Specialty Instructions Weigh Daily
Instructions:
Stand-Alone Forms:
Changes to Home Medications: Yes
Discharge Medications:
DC Medications w/original date entered in [employer]
fluticasone fur. 100 mcg-umeclid 62.5 mcg-vilant 25 mcg inhalat.powder (Trelegy Ellipta) 1 inh inhalation Q24H 05/24/25
pregabalin 150 mg capsule 150 mg PO BID 05/24/25
spironolactone 25 mg tablet 25 mg PO DAILY 05/24/25
tafamidis 61 mg capsule (Vyndamax) 61 mg PO DAILY 05/24/25
dabigatran etexilate 150 mg capsule 150 mg PO BID 06/29/25
dapagliflozin propanediol 10 mg tablet 10 mg PO DAILY #30 tabs 07/04/25
dofetilide 125 mcg capsule 125 mcg PO Q12 #60 caps 07/04/25
furosemide 20 mg tablet (Lasix) 20 mg PO DAILY PRN volume retention #30 tabs 07/04/25
metoprolol succinate 25 mg tablet,extended release 24 hr 25 mg PO DAILY #30 tabs 07/04/25
Home Medication Changes
metoprolol decreased, lasix now only PRN, farxiga added, dofetilide added
Pending Results: No
[2025-07-04 11:04] VITALS: BP 114/58
--- NOTE | 2025-07-04 12:51 | PTCARENOTE ---
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 D/C instructions discussed w/pt & spouse. Pt left via WC w/spouse driving pt home.
== END 2025-07-04 12:51 | disposition home or self-care (01) | DRG 309 ==
LOC: IVU 10:43
PROVIDERS: Internal Medicine Cardiovascular Disease; Nurse Practitioner; ADMITTING PHYSICIAN Internal Medicine Cardiovascular Disease; FAMILY PHYSICIAN Family Medicine
PROC: 5A2204Z Restoration of Cardiac Rhythm, Single (ICD-10-PCS; 2025-06-29)
PROC: B246ZZ4 Ultrasonography of Right and Left Heart, Transesophageal (ICD-10-PCS; 2025-06-29)
PROC: 5A09357 Assistance with Respiratory Ventilation, Less than 24 Consecutive Hours, Continuous Positive Airway Pressure (ICD-10-PCS; 2025-07-01)
DX: I48.19 Other persistent atrial fibrillation (principal); E85.4 Organ-limited amyloidosis; E85.9 Amyloidosis, unspecified; I13.0 Hypertensive heart and chronic kidney disease with heart failure and stage 1 through stage 4 chronic kidney disease, or unspecified chronic kidney disease; J84.9 Interstitial pulmonary disease, unspecified; I50.22 Chronic systolic (congestive) heart failure; N17.9 Acute kidney failure, unspecified; I25.10 Atherosclerotic heart disease of native coronary artery without angina pectoris; G47.30 Sleep apnea, unspecified; R91.8 Other nonspecific abnormal finding of lung field; I43 Cardiomyopathy in diseases classified elsewhere; N18.31 Chronic kidney disease, stage 3a; J44.9 Chronic obstructive pulmonary disease, unspecified; E87.5 Hyperkalemia; I47.29 Other ventricular tachycardia; I95.9 Hypotension, unspecified; Z79.01 Long term (current) use of anticoagulants; Z86.718 Personal history of other venous thrombosis and embolism; I25.2 Old myocardial infarction; Z86.79 Personal history of other diseases of the circulatory system
CPT/HCPCS: 80048; 81003; 81015; 83735; 85027; 92960; 93005; 93306; 93312; 93320; 93325; 94640; 99406